=== PATIENT | male | born 1945 | race Two or more races ===

== ENCOUNTER 2016-09-08 18:25 | Inpatient (IN) | payer OTHER ==
[~2016-09-08] VITALS: Ht 180.3 cm; Wt 99.8 kg
[2016-09-08] MEDS ORDERED: IV SET PRIMARY 1 EA INFUS.SET MC ONE (18:44)
[2016-09-08] MEDS ORDERED: IV NS 0.9% 500 ML IV ONE (18:44)
[2016-09-08 18:51] LABS: BASOPHILS # (AUTO) 0.4 /CMM (0.0-0.2); BASOPHILS % (AUTO) 1.5 % (0.0-2.0); DIFF TOTAL % 100 %; EOSINOPHILS % (AUTO) 0.1 % (0.0-6.0); HEMATOCRIT 27 % (39-51); HEMOGLOBIN 8.9 g/dL (13.5-17.5); LYMPHOCYTES # (AUTO) 0.4 /CMM (0.8-4.8); LYMPHOCYTES % (AUTO) 1.7 % (20.0-44.0); MEAN CORPUSCULAR HEMOGLOBIN 31 PG (26.0-33.0); MEAN CORPUSCULAR HGB CONC 33 g/dl (31.0-36.0); MEAN CORPUSCULAR VOLUME 96 fL (80-96); MONOCYTES # (AUTO) 0.6 /CMM (0.1-1.30); MONOCYTES % (AUTO) 2.7 % (2.0-12.0); NEUTROPHILS # (AUTO) 22.2 /CMM (1.8-8.9); PLATELET COUNT (AUTO) 389 /CMM (150-450); RED BLOOD CELL COUNT(AUTO) 2.84 MIL/uL (4.5-6.0); WHITE BLOOD COUNT (AUTO) 23.6 K/uL (4.3-11.0)
[2016-09-08] MEDS ORDERED: IV NS 0.9% 500 ML BAG IV ONE (19:00)
[2016-09-08 19:01] LABS: INR 1.14 (0.87-1.13)
[2016-09-08 19:02] LABS: ALANINE AMINOTRANSFERASE 45 U/L (12-78); ALBUMIN 2.4 g/dL (3.4-5.0); ANION GAP 27 (5-14); ASPARTATE AMINOTRANSFERASE 27 U/L (15-37); BILIRUBIN,DIRECT 0.2 mg/dL (0.0-0.2); BILIRUBIN,TOTAL 0.3 mg/dL (0.2-1.0); CALCIUM, SERUM 9.7 mg/dL (8.5-10.1); CHLORIDE 108 mmol/L (98-107); CREATININE 3.7 mg/dL (0.6-1.3); GLUCOSE 239 mg/dL (74-106); INDIRECT BILIRUBIN 0.1 mg/dL (0.0-1.1); POTASSIUM 5.1 mmol/L (3.5-5.1); SODIUM SERUM 136 mmol/L (136-145)
[2016-09-08 19:03] LABS: CARBON DIOXIDE 6 mmol/L (21-32); UREA NITROGEN, BLOOD 104 mg/dL (7-18)
[2016-09-08 19:18] LABS: LACTIC ACID 2.3 mmol/L (0.4-2.0)
[2016-09-08 19:22] LABS: TROPONIN I 1.542 ng/mL (0.00-0.056)
[2016-09-08 19:45] LABS: ABG BASE EXCESS -21.3 mmol/L; ABG HCO3 5.6 mmol/L; ABG PCO2 16.4 mmHg (35.0-45.0); ABG PH 7.151 (7.350-7.450); ABG PO2 101.1 mmHg (75.0-100.0); ABG TOTAL HEMOGLOBIN 8.3 G/dL (13.5-18.0); ALLEN TEST Pass
[2016-09-08 19:47] LABS: *LACTIC ACID REFLEX FLAG YES
[2016-09-08] MEDS ORDERED: IV NS 0.9% 2,000 ML ONE (20:09)
[2016-09-08] MEDS ORDERED: IV SET PRIMARY PUMP SET 1 EA INFUS.SET MC ONE ×3 (20:10→22:54)
[2016-09-08] MEDS ORDERED: IV NS 0.9% 100 ML IV ONE (20:10)
[2016-09-08 20:19] LABS: LYMPHOCYTES % (MANUAL) 2 % (16-48); PLATELET ESTIMATE ADEQU; RBC MORPHOLOGY COMMENT NORMAL RBC MORPH
[2016-09-08] MEDS ORDERED: PANTOPRAZOLE 80 MG in IV NS 0.9% 100 ML IV ONE (20:30)
[2016-09-08] MEDS ORDERED: IV NS 0.9% 1,000 ML BAG IV ONE (20:30)
[2016-09-08] MEDS ORDERED: VANCOMYCIN 1 GM in IV D5W 250 ML IV ONE (20:30)
[2016-09-08] MEDS ORDERED: MEROPENEM 1 G in IV NS 0.9% 100 ML IV ONE (20:30)
[2016-09-08 21:09] LABS: ADD UA MICROSCOPIC YES; KETONES,URINE Negative (NEGATIVE); LEUKOCYTE ESTERASE ,URINE Large (NEGATIVE); PH,URINE 6.5 (5.0-8.0)
[2016-09-08] MEDS: PANTOPRAZOLE 80 MG in IV NS 0.9% 500 ML IV PRN (21:12)
[2016-09-08 21:28] LABS: ADD URINE CULTURE YES; WBC,URINE TOO NUMEROUS TO COUN /HPF (0-3)
[2016-09-08] MEDS ORDERED: IV NS 0.9% 1,000 ML IV PRN (21:48)
[2016-09-08] MEDS ORDERED: MAG HYDROX/AL HYDROX/SIMETH 30 ML UDC PO PRN (22:00)
[2016-09-08] MEDS ORDERED: ONDANSETRON HCL/PF 4 MG/2 ML VIAL IVP PRN (22:00)
[2016-09-08] MEDS ORDERED: MORPHINE SULFATE INJ 2 MG/ML DISP.SYRIN IV PRN (22:00)
[2016-09-08] MEDS ORDERED: Z GUARD REMEDY 2 OZ OINT TP PRN (22:00)
[2016-09-08] MEDS ORDERED: MAGNESIUM HYDROXIDE 30 ML UDC PO PRN (22:00)
[2016-09-08] MEDS ORDERED: IV NS 0.9% 1,000 ML ONE (22:54)
[2016-09-08 22:58] VITALS: BP 93/61
[2016-09-08 23:00] VITALS: BP 103/56
[2016-09-08 23:04] VITALS: BP 93/61
[2016-09-08 23:30] VITALS: BP 107/70
[2016-09-08] MEDS: BLOOD SUGAR DIAGNOSTIC 1 EACH STRIP IN SCH (23:54)
[2016-09-08] MEDS ORDERED: INSULIN REGULAR, HUMAN 100 UNIT/ML 10 ML VIAL ONE (23:59)
[2016-09-09] VITALS (60 sets, daily range): BP systolic 68–125; BP diastolic 45–73
[2016-09-09] MEDS ORDERED: DEXTROSE 50%-WATER 50 ML DISP.SYRIN IV PRN
[2016-09-09] MEDS: INSULIN REGULAR, HUMAN 100 UNIT/ML 3 ML VIAL SQ PRN ×5 (00:18→23:25)
[2016-09-09] MEDS ORDERED: IV D5W 50 ML IV ONE ×2 (00:27→05:57)
[2016-09-09] MEDS ORDERED: PIPERACILLIN /TAZOBACTAM 2.25 G VIAL IV ONE ×2 (00:27→05:56)
[2016-09-09] MEDS ORDERED: SECONDARY IV SET 1 EA INFUS.SET MC ONE (00:27)
[2016-09-09] MEDS: PIPERACILLIN /TAZOBACTAM 2.25 G in IV D5W 50 ML IV SCH ×5 (00:32→23:26)
[2016-09-09 00:36] LABS: DIFF TOTAL % 100 %; EOSINOPHILS % (AUTO) 0.2 % (0.0-6.0); HEMATOCRIT 22 % (39-51); HEMOGLOBIN 7.2 g/dL (13.5-17.5); LYMPHOCYTES # (AUTO) 0.8 /CMM (0.8-4.8); LYMPHOCYTES % (AUTO) 4.5 % (20.0-44.0); MEAN CORPUSCULAR HEMOGLOBIN 31 PG (26.0-33.0); MEAN CORPUSCULAR HGB CONC 33 g/dl (31.0-36.0); MEAN CORPUSCULAR VOLUME 95 fL (80-96); MONOCYTES # (AUTO) 0.6 /CMM (0.1-1.30); MONOCYTES % (AUTO) 3.4 % (2.0-12.0); NEUTROPHILS # (AUTO) 16.7 /CMM (1.8-8.9); NEUTROPHILS % (AUTO) 91.9 % (43.0-81.0); PLATELET COUNT (AUTO) 316 /CMM (150-450); WHITE BLOOD COUNT (AUTO) 18.2 K/uL (4.3-11.0)
[2016-09-09] MEDS: PANTOPRAZOLE 80 MG in IV NS 0.9% 500 ML IV PRN ×3 (00:39→18:03)
[2016-09-09 00:48] LABS: CALCIUM, SERUM 8.5 mg/dL (8.5-10.1); CREATININE 3.3 mg/dL (0.6-1.3); POTASSIUM 4.5 mmol/L (3.5-5.1)
[2016-09-09 04:42] LABS: BASOPHILS # (AUTO) 0.1 /CMM (0.0-0.2); BASOPHILS % (AUTO) 0.7 % (0.0-2.0); DIFF TOTAL % 100 %; EOSINOPHILS # (AUTO) 0.1 /CMM (0.0-0.7); EOSINOPHILS % (AUTO) 0.4 % (0.0-6.0); HEMATOCRIT 21 % (39-51); LYMPHOCYTES # (AUTO) 0.8 /CMM (0.8-4.8); LYMPHOCYTES % (AUTO) 4.8 % (20.0-44.0); MEAN CORPUSCULAR HEMOGLOBIN 31 PG (26.0-33.0); MEAN CORPUSCULAR HGB CONC 33 g/dl (31.0-36.0); MEAN CORPUSCULAR VOLUME 95 fL (80-96); MONOCYTES # (AUTO) 0.8 /CMM (0.1-1.30); NEUTROPHILS # (AUTO) 14.4 /CMM (1.8-8.9); NEUTROPHILS % (AUTO) 89.1 % (43.0-81.0); PLATELET COUNT (AUTO) 277 /CMM (150-450); RED BLOOD CELL COUNT(AUTO) 2.17 MIL/uL (4.5-6.0); WHITE BLOOD COUNT (AUTO) 16.2 K/uL (4.3-11.0)
[2016-09-09 04:52] LABS: HEMOGLOBIN 6.8 g/dL (13.5-17.5)
[2016-09-09 05:08] LABS: CALCIUM, SERUM 8.6 mg/dL (8.5-10.1); CREATININE 3.2 mg/dL (0.6-1.3); PHOSPHORUS 4.1 mg/dL (2.5-4.9); POTASSIUM 4.1 mmol/L (3.5-5.1)
[2016-09-09] MEDS ORDERED: IV NS 0.9% 250 ML IV ONE ×3 (05:09→15:30)
[2016-09-09] MEDS ORDERED: BLOOD IV SET 1 EA INFUS.SET MC ONE ×2 (05:10→08:20)
[2016-09-09 05:39] LABS: BAND % (MANUAL) 1 % (0.0-5.0); BASOPHILS % (MANUAL) 0 % (0.0-2.0); EOSINOPHILS % (MANUAL) 0 % (0-4); HYPOCHROMASIA 1+; LYMPHOCYTES % (MANUAL) 4 % (16-48); PLATELET ESTIMATE ADEQUATE
[2016-09-09] MEDS: BLOOD SUGAR DIAGNOSTIC 1 EACH STRIP IN SCH ×4 (06:08→23:25)
[2016-09-09 07:43] LABS: THYROID STIMULATING HORMONE 2.037 uIU/mL (0.358-3.74)
[2016-09-09] MEDS ORDERED: [UNRECOGNIZED DRUG - OTHER] PO (08:50)
[2016-09-09] MEDS ORDERED: [UNRECOGNIZED DRUG - OTHER] PO (08:56)
[2016-09-09] MEDS ORDERED: LOSA50TA3 PO (08:56)
[2016-09-09] MEDS ORDERED: [UNRECOGNIZED DRUG - OTHER] PO (08:56)
[2016-09-09] MEDS: Sodium Bicarbonate 100 MEQ in IV D5W 1,000 ML IV PRN ×2 (10:05→20:13)
[2016-09-09 10:06] LABS: ABG BASE EXCESS -20.2 mmol/L; ABG PH 7.193 (7.350-7.450); ABG PO2 100.4 mmHg (75.0-100.0); ABG TOTAL HEMOGLOBIN 8.7 G/dL (13.5-18.0); ALLEN TEST Pass; AaDO2 30.2 mmHg; O2Hb 94.5 % (94.0-97.0)
[2016-09-09] MEDS ORDERED: IV SET PRIMARY PUMP SET 1 EA INFUS.SET MC ONE (11:16)
[2016-09-09 13:37] LABS: HEMOGLOBIN 8.2 g/dL (13.5-17.5)
[2016-09-10] VITALS (35 sets, daily range): BP systolic 79–115; BP diastolic 49–70
[2016-09-10] MEDS: PANTOPRAZOLE 80 MG in IV NS 0.9% 500 ML IV PRN (04:07)
[2016-09-10 04:55] LABS: DIFF TOTAL % 100 %; EOSINOPHILS # (AUTO) 0.2 /CMM (0.0-0.7); EOSINOPHILS % (AUTO) 1.7 % (0.0-6.0); HEMATOCRIT 23 % (39-51); HEMOGLOBIN 7.6 g/dL (13.5-17.5); LYMPHOCYTES # (AUTO) 0.9 /CMM (0.8-4.8); LYMPHOCYTES % (AUTO) 6.2 % (20.0-44.0); MEAN CORPUSCULAR HEMOGLOBIN 30 PG (26.0-33.0); MEAN CORPUSCULAR HGB CONC 34 g/dl (31.0-36.0); MEAN CORPUSCULAR VOLUME 89 fL (80-96); MONOCYTES # (AUTO) 0.8 /CMM (0.1-1.30); MONOCYTES % (AUTO) 5.6 % (2.0-12.0); NEUTROPHILS # (AUTO) 11.9 /CMM (1.8-8.9); NEUTROPHILS % (AUTO) 86.5 % (43.0-81.0); PLATELET COUNT (AUTO) 240 /CMM (150-450); RED BLOOD CELL COUNT(AUTO) 2.52 MIL/uL (4.5-6.0); WHITE BLOOD COUNT (AUTO) 13.8 K/uL (4.3-11.0)
[2016-09-10 05:08] LABS: ALBUMIN 1.5 g/dL (3.4-5.0); BILIRUBIN,TOTAL 0.4 mg/dL (0.2-1.0); PHOSPHORUS 3.5 mg/dL (2.5-4.9); POTASSIUM 3.5 mmol/L (3.5-5.1); TOTAL PROTEIN, SERUM 5.6 g/dL (6.4-8.2)
[2016-09-10 05:21] LABS: TROPONIN I 7.513 ng/mL (0.00-0.056)
[2016-09-10] MEDS: INSULIN REGULAR, HUMAN 100 UNIT/ML 3 ML VIAL SQ PRN ×4 (05:33→23:43)
[2016-09-10] MEDS: BLOOD SUGAR DIAGNOSTIC 1 EACH STRIP IN SCH ×4 (05:33→23:45)
[2016-09-10] MEDS: PIPERACILLIN /TAZOBACTAM 2.25 G in IV D5W 50 ML IV SCH ×3 (05:37→17:03)
[2016-09-10] MEDS: Sodium Bicarbonate 100 MEQ in IV D5W 1,000 ML IV PRN (06:57)
[2016-09-10] MEDS ORDERED: IV SET PRIMARY PUMP SET 1 EA INFUS.SET MC ONE (08:51)
[2016-09-10] MEDS ORDERED: EPHEDRINE SULFATE IV 50MG VIAL ONE (09:06)
[2016-09-10] MEDS: Magnesium 1GM/D5W 100ML PREMIX 100 ML IV SCH ×2 (09:35→10:34)
[2016-09-10 10:32] LABS: VIT D, 25-HYDROXY 15.4 ng/mL (30.0-100.0)
[2016-09-10 11:12] LABS: ABG BASE EXCESS -13.4 mmol/L; ABG HCO3 11.4 mmol/L; ABG PCO2 23.4 mmHg (35.0-45.0); ABG PH 7.307 (7.350-7.450); ABG PO2 94.8 mmHg (75.0-100.0); ALLEN TEST Pass; AaDO2 26.9 mmHg; O2Hb 95.1 % (94.0-97.0)
[2016-09-10] MEDS ORDERED: DEXTROSE 50%-WATER 50 ML DISP.SYRIN IV PRN (12:00)
[2016-09-10] MEDS ORDERED: BLOOD IV SET 1 EA INFUS.SET MC ONE (12:51)
[2016-09-10] MEDS ORDERED: IV NS 0.9% 250 ML IV ONE (12:51)
[2016-09-10] MEDS: IV D5/ 0.9% NACL 1,000 ML IV PRN (13:14)
[2016-09-10 14:19] LABS: *SPE ALBUMIN 2.2 g/dL (2.9-4.4)
[2016-09-10] MEDS ORDERED: SECONDARY IV SET 1 EA INFUS.SET MC ONE (15:07)
[2016-09-10] MEDS: SOD FERRIC GLUC 125 MG in IV NS 0.9% 100 ML IV SCH (15:31)
[2016-09-10 17:48] LABS: HEMOGLOBIN 8.1 g/dL (13.5-17.5)
[2016-09-11] VITALS (24 sets, daily range): BP systolic 91–123; BP diastolic 54–73
[2016-09-11] MEDS: PIPERACILLIN /TAZOBACTAM 2.25 G in IV D5W 50 ML IV SCH ×5 (00:16→23:06)
[2016-09-11] MEDS: IV D5/ 0.9% NACL 1,000 ML IV PRN ×2 (00:21→15:43)
[2016-09-11 04:40] LABS: DIFF TOTAL % 100 %; EOSINOPHILS # (AUTO) 0.3 /CMM (0.0-0.7); EOSINOPHILS % (AUTO) 2.4 % (0.0-6.0); HEMATOCRIT 25 % (39-51); HEMOGLOBIN 8.3 g/dL (13.5-17.5); LYMPHOCYTES % (AUTO) 7.5 % (20.0-44.0); MEAN CORPUSCULAR HEMOGLOBIN 30 PG (26.0-33.0); MEAN CORPUSCULAR HGB CONC 33 g/dl (31.0-36.0); MEAN CORPUSCULAR VOLUME 89 fL (80-96); MONOCYTES # (AUTO) 0.7 /CMM (0.1-1.30); MONOCYTES % (AUTO) 5.5 % (2.0-12.0); NEUTROPHILS # (AUTO) 10.8 /CMM (1.8-8.9); NEUTROPHILS % (AUTO) 84.6 % (43.0-81.0); PLATELET COUNT (AUTO) 244 /CMM (150-450); RED BLOOD CELL COUNT(AUTO) 2.79 MIL/uL (4.5-6.0); WHITE BLOOD COUNT (AUTO) 12.8 K/uL (4.3-11.0)
[2016-09-11 04:48] LABS: BILIRUBIN,TOTAL 0.6 mg/dL (0.2-1.0); CALCIUM, SERUM 7.8 mg/dL (8.5-10.1); CREATININE 2.8 mg/dL (0.6-1.3); PHOSPHORUS 3.5 mg/dL (2.5-4.9); POTASSIUM 3.1 mmol/L (3.5-5.1); TOTAL PROTEIN, SERUM 5.2 g/dL (6.4-8.2)
[2016-09-11 04:55] LABS: ALBUMIN 1.4 g/dL (3.4-5.0); TROPONIN I 3.249 ng/mL (0.00-0.056)
[2016-09-11] MEDS: INSULIN REGULAR, HUMAN 100 UNIT/ML 3 ML VIAL SQ PRN ×4 (05:47→23:08)
[2016-09-11] MEDS: BLOOD SUGAR DIAGNOSTIC 1 EACH STRIP IN SCH ×4 (05:48→23:06)
[2016-09-11] MEDS: PANTOPRAZOLE 40 MG TABLET.DR PO SCH (07:28)
[2016-09-11] MEDS: ACETAMINOPHEN 650 MG/20.3 ML UDC PO PRN (07:28)
[2016-09-11] MEDS: POTASSIUM CHLORIDE 20 MEQ TAB.PRT.SR PO SCH ×3 (09:00→10:19)
[2016-09-11] MEDS: ASPIRIN 81 MG TAB.CHEW PO SCH (10:10)
[2016-09-11] MEDS: HEPARIN SODIUM, PORCINE 5000 UNITS/1 ML VIAL SQ SCH ×2 (10:11→22:21)
[2016-09-11] MEDS ORDERED: EPOETIN ALFA (10,000 UNIT) 10,000 UNIT/ML VIAL SQ ONE (12:00)
[2016-09-11] MEDS: SOD FERRIC GLUC 125 MG in IV NS 0.9% 100 ML IV SCH (15:43)
[2016-09-12] VITALS: BP 124/69
[2016-09-12 04:00] VITALS: BP 121/58
[2016-09-12] MEDS: PIPERACILLIN /TAZOBACTAM 2.25 G in IV D5W 50 ML IV SCH ×4 (05:08→23:46)
[2016-09-12] MEDS: IV D5/ 0.9% NACL 1,000 ML IV PRN (05:08)
[2016-09-12] MEDS: BLOOD SUGAR DIAGNOSTIC 1 EACH STRIP IN SCH ×4 (05:12→23:48)
[2016-09-12] MEDS: INSULIN REGULAR, HUMAN 100 UNIT/ML 3 ML VIAL SQ PRN ×5 (05:15→21:41)
[2016-09-12 06:41] LABS: BASOPHILS % (AUTO) 0.3 % (0.0-2.0); DIFF TOTAL % 100 %; EOSINOPHILS # (AUTO) 0.4 /CMM (0.0-0.7); EOSINOPHILS % (AUTO) 2.6 % (0.0-6.0); HEMATOCRIT 28 % (39-51); HEMOGLOBIN 9.4 g/dL (13.5-17.5); LYMPHOCYTES # (AUTO) 1.3 /CMM (0.8-4.8); MEAN CORPUSCULAR HEMOGLOBIN 31 PG (26.0-33.0); MEAN CORPUSCULAR HGB CONC 34 g/dl (31.0-36.0); MEAN CORPUSCULAR VOLUME 90 fL (80-96); MONOCYTES # (AUTO) 0.8 /CMM (0.1-1.30); MONOCYTES % (AUTO) 5.7 % (2.0-12.0); NEUTROPHILS # (AUTO) 11.6 /CMM (1.8-8.9); NEUTROPHILS % (AUTO) 82.4 % (43.0-81.0); PLATELET COUNT (AUTO) 307 /CMM (150-450); WHITE BLOOD COUNT (AUTO) 14.1 K/uL (4.3-11.0)
[2016-09-12 06:49] LABS: ALBUMIN 1.5 g/dL (3.4-5.0); BILIRUBIN,TOTAL 0.5 mg/dL (0.2-1.0); CALCIUM, SERUM 8.2 mg/dL (8.5-10.1); CREATININE 2.6 mg/dL (0.6-1.3); PHOSPHORUS 2.5 mg/dL (2.5-4.9); POTASSIUM 3.7 mmol/L (3.5-5.1)
[2016-09-12 07:00] VITALS: BP 125/60
[2016-09-12 08:00] VITALS: BP 125/60
[2016-09-12] MEDS: HEPARIN SODIUM, PORCINE 5000 UNITS/1 ML VIAL SQ SCH ×2 (08:44→21:42)
[2016-09-12] MEDS: ASPIRIN 81 MG TAB.CHEW PO SCH (08:45)
[2016-09-12] MEDS: PANTOPRAZOLE 40 MG TABLET.DR PO SCH (08:45)
[2016-09-12] MEDS: CARVEDILOL 3.125 MG TABLET PO SCH ×2 (10:23→21:37)
[2016-09-12] MEDS ORDERED: FLUCONAZOLE (100 MG) 100 MG TABLET PO ONE (11:30)
[2016-09-12] MEDS: SOD FERRIC GLUC 125 MG in IV NS 0.9% 100 ML IV SCH (14:01)
[2016-09-12] MEDS ORDERED: SECONDARY IV SET 1 EA INFUS.SET MC ONE (14:02)
[2016-09-12 16:00] VITALS: BP 98/61
[2016-09-13] MEDS: BLOOD SUGAR DIAGNOSTIC 1 EACH STRIP IN SCH ×2 (05:26→11:20)
[2016-09-13] MEDS: PIPERACILLIN /TAZOBACTAM 2.25 G in IV D5W 50 ML IV SCH ×2 (05:26→11:18)
[2016-09-13 06:44] LABS: BASOPHILS # (AUTO) 0.1 /CMM (0.0-0.2); BASOPHILS % (AUTO) 0.6 % (0.0-2.0); DIFF TOTAL % 100 %; EOSINOPHILS # (AUTO) 0.4 /CMM (0.0-0.7); EOSINOPHILS % (AUTO) 2.6 % (0.0-6.0); HEMATOCRIT 27 % (39-51); HEMOGLOBIN 8.7 g/dL (13.5-17.5); LYMPHOCYTES % (AUTO) 13.1 % (20.0-44.0); MEAN CORPUSCULAR HEMOGLOBIN 29 PG (26.0-33.0); MEAN CORPUSCULAR HGB CONC 33 g/dl (31.0-36.0); MEAN CORPUSCULAR VOLUME 90 fL (80-96); MONOCYTES # (AUTO) 0.9 /CMM (0.1-1.30); NEUTROPHILS # (AUTO) 11.9 /CMM (1.8-8.9); NEUTROPHILS % (AUTO) 77.7 % (43.0-81.0); PLATELET COUNT (AUTO) 285 /CMM (150-450); RED BLOOD CELL COUNT(AUTO) 2.95 MIL/uL (4.5-6.0); WHITE BLOOD COUNT (AUTO) 15.4 K/uL (4.3-11.0)
[2016-09-13 07:10] LABS: CREATININE 2.2 mg/dL (0.6-1.3); POTASSIUM 3.4 mmol/L (3.5-5.1)
[2016-09-13 08:00] VITALS: BP 118/68
[2016-09-13] MEDS: ACETAMINOPHEN 650 MG/20.3 ML UDC PO PRN (08:27)
[2016-09-13 08:28] VITALS: BP 118/60
[2016-09-13] MEDS: NYSTATIN (PYXIS) 500,000 UNIT/5 ML ORAL.SUSP PO SCH ×2 (08:28→12:06)
[2016-09-13] MEDS: HEPARIN SODIUM, PORCINE 5000 UNITS/1 ML VIAL SQ SCH (08:28)
[2016-09-13] MEDS: PANTOPRAZOLE 40 MG TABLET.DR PO SCH (08:28)
[2016-09-13] MEDS: ASPIRIN 81 MG TAB.CHEW PO SCH (08:28)
[2016-09-13] MEDS: CARVEDILOL 3.125 MG TABLET PO SCH (08:28)
[2016-09-13] MEDS ORDERED: POTASSIUM CHLORIDE 20 MEQ TAB.PRT.SR PO ONE (10:30)
[2016-09-13] MEDS: INSULIN REGULAR, HUMAN 100 UNIT/ML 3 ML VIAL SQ PRN (11:20)
[2016-09-13 11:57] LABS: ABG BASE EXCESS -11.7 mmol/L; ABG HCO3 12.8 mmol/L; ABG PCO2 24.8 mmHg (35.0-45.0); ABG PH 7.332 (7.350-7.450); ABG PO2 90.3 mmHg (75.0-100.0); ABG TOTAL HEMOGLOBIN 9.2 G/dL (13.5-18.0); ALLEN TEST Pass; AaDO2 29.7 mmHg; O2Hb 94.3 % (94.0-97.0)
[2016-09-13] MEDS ORDERED: CITRIC ACID/SODIUM CITRATE (BICITRA)15 ML UDC PO SCH (13:00)
[2016-09-13] MEDS ORDERED: CARV3.12 PO (13:40)
[2016-09-13] MEDS ORDERED: AMOX500T2 PO (13:40)
[2016-09-13] MEDS ORDERED: LEVO750T21 PO (13:40)
[2016-09-13] MEDS ORDERED: ASPI81TA2 PO (13:40)
[2016-09-13] MEDS ORDERED: CITR15SO PO (13:40)
[2016-09-13] MEDS ORDERED: FLUC200T8 PO (13:40)
[2016-09-14] MEDS ORDERED: FLUCONAZOLE (100 MG) 100 MG TABLET PO SCH (09:00)
== END 2016-09-13 16:30 | disposition home or self-care (01) | DRG 871 ==
LOC: ER 18:27 → ICU 20:36 → TELE 09-11 15:07 → MED 09-12 11:15
PROVIDERS: ADMIT Internal Medicine; ATTEND Internal Medicine
PROC: 02HV33Z Insertion of Infusion Device into Superior Vena Cava, Percutaneous Approach (ICD-10-PCS; principal; 2016-09-08)
PROC: B548ZZA Ultrasonography of Superior Vena Cava, Guidance (ICD-10-PCS; principal; 2016-09-08)
PROC: 30233N1 Transfusion of Nonautologous Red Blood Cells into Peripheral Vein, Percutaneous Approach (ICD-10-PCS; 2016-09-10)
PROC: 0DB58ZX Excision of Esophagus, Via Natural or Artificial Opening Endoscopic, Diagnostic (ICD-10-PCS; 2016-09-10)
DX: A41.51 Sepsis due to Escherichia coli [E. coli] (principal); N17.0 Acute kidney failure with tubular necrosis; I21.4 Non-ST elevation (NSTEMI) myocardial infarction; G93.40 Encephalopathy, unspecified; N39.0 Urinary tract infection, site not specified; E87.2 Acidosis; E46 Unspecified protein-calorie malnutrition; K92.2 Gastrointestinal hemorrhage, unspecified; K22.10 Ulcer of esophagus without bleeding; B37.81 Candidal esophagitis; N13.6 Pyonephrosis; R65.20 Severe sepsis without septic shock; Z85.51 Personal history of malignant neoplasm of bladder; K44.9 Diaphragmatic hernia without obstruction or gangrene; D63.8 Anemia in other chronic diseases classified elsewhere; I34.0 Nonrheumatic mitral (valve) insufficiency; B95.2 Enterococcus as the cause of diseases classified elsewhere; E11.9 Type 2 diabetes mellitus without complications; E78.5 Hyperlipidemia, unspecified; I10 Essential (primary) hypertension; I25.2 Old myocardial infarction; I70.0 Atherosclerosis of aorta; Z85.038 Personal history of other malignant neoplasm of large intestine; Z90.49 Acquired absence of other specified parts of digestive tract
CPT/HCPCS: 36415; 36600; 71010-TC; 80048-TC; 80053-TC; 80061-TC; 80076-TC; 81000-TC; 82272-TC; 82306; 82728-TC; 82962-TC; 83540-TC; 83605-TC; 83735-TC; 83880; 84100-TC; 84155; 84165; 84439-TC; 84443-TC; 84484-TC; 85025-TC; 85027-TC; 85045-TC; 85730-TC; 86850-TC; 86901; 86921-TC; 87040-TC; 87081-TC; 87086-TC; 87186-TC; 87400; 88305-TC; 88312-TC; 88342; 93307-TC; 97001-TC; A4606; C9113; J0885; J1644; J1815; J2185; J2543; J2916; J3370; J3475; J7030; J7040; J7042; J7050; J7060; J7070; P9016-BL; Z7610